=== PATIENT | female | born 1960 | race Asian ===

== ENCOUNTER 2022-04-16 17:18 | Emergency (ER) | payer OTHER ==
[~2022-04-16] VITALS: Ht 165.1 cm; Wt 143.3 kg
[2022-04-16 18:00] LABS: PLATELET COUNT 221 K/uL (152-353)
[2022-04-16 18:09] LABS: POTASSIUM 4.6 mmol/L (3.6-5.2)
[2022-04-16 21:00] VITALS: BP 164/67; TEMP 97.2
[2022-04-16] MEDS ORDERED: ARIPIPRAZOLE20 MG PO (22:08)
[2022-04-16] MEDS ORDERED: PEPCID20 MG PO (22:08)
[2022-04-16] MEDS ORDERED: LOSA50TA PO (22:09)
[2022-04-16] MEDS ORDERED: MAGNESIUM OXID400 M1 PO (22:10)
[2022-04-16] MEDS ORDERED: PRAZOSIN HCL1 MG PO (22:11)
[2022-04-16] MEDS ORDERED: MELATONIN5 M4 PO (22:11)
[2022-04-16] MEDS ORDERED: LEVO-T175 MCG PO (22:12)
[2022-04-16] MEDS ORDERED: TRAZODONE HYDRO50 MG PO (22:13)
[2022-04-16] MEDS ORDERED: LIDODERM5 % TOP (22:14)
[2022-04-16] MEDS ORDERED: GLIM2TAB PO (22:14)
[2022-04-16] MEDS ORDERED: OXCARBAZEPIN300 MG PO (22:15)
[2022-04-16] MEDS ORDERED: SOD CHLORIDE1 GM PO (22:18)
[2022-04-16] MEDS ORDERED: BUDE1AER3 INH (22:19)
[2022-04-16] MEDS ORDERED: DICL1GEL2 TOP (22:22)
[2022-04-16] MEDS ORDERED: PROVENTIL108 MCG/AC INH (22:23)
[2022-04-16] MEDS ORDERED: BACLOFEN5 MG PO (22:24)
[2022-04-16] MEDS ORDERED: ACETAMINOPHEN PO (22:24)
[2022-04-16] MEDS ORDERED: FUROSEMIDE20 MG PO (22:25)
== END 2022-04-16 21:00 | disposition still patient (30) ==
LOC: ED 17:18
PROVIDERS: Emergency Medicine
DX: R46.89 Other symptoms and signs involving appearance and behavior (principal); F20.89 Other schizophrenia; E87.1 Hypo-osmolality and hyponatremia; Z11.52 Encounter for screening for COVID-19; Z04.6 Encounter for general psychiatric examination, requested by authority
CPT/HCPCS: 80053; 84443; 85027; 87635; 93005; 99283; U0003